=== PATIENT | male | born 1950 | race Caucasian/White ===

== ENCOUNTER 2019-10-18 15:41 | Emergency (ER) | payer MEDICARE, BC ==
[2019-10-18 19:37] LABS: #Lymphocytes 0.6 thou/uL (1.20-3.40); #Monocytes 0.4 thou/uL (0.11-0.59); #Neutrophils 3.5 thou/uL (1.40-6.50); %Basophils 0.5 % (0.0-1.0); %Eosinophils 0.7 % (0.0-10.0); %Lymphocytes 12.5 % (21.0-51.0); %Monocytes 8.3 % (0.0-10.0); %Neutrophils 78.1 % (42.0-75.0); Hemoglobin 13.6 g/dL (14.0-18.0); Mean Corpuscular HGB CONC 32.6 g/dL (32.0-36.0); Mean Corpuscular Hemoglobin 29.8 pg (27.0-31.0); Mean Corpuscular Volume 91.5 fL (78.0-98.0); Mean Platelet Volume 7.2 fL (7.4-10.4); Platelet Count 217 thou/uL (130-400); Red Blood Cell (RBC) Count 4.56 mill/uL (4.70-6.10); White Blood Cell (WBC) Count 4.5 thou/uL (4.8-10.8)
[2019-10-18 20:00] LABS: ALT (SGPT) 18 U/L (8-55); AST (SGOT) 18 U/L (5-34); Albumin 4.1 g/dL (3.4-4.8); Alkaline Phosphatase 65 U/L (40-110); Anion Gap 15 mmol/L (10-20); BUN (Urea Nitrogen) 20 mg/dL (8.4-25.7); Bilirubin, Total 0.8 mg/dL (0.2-1.2); CK (CPK) 128 U/L (30-200); Calc. Creatinine Clearance 0 mL/min (70-130); Calcium 9.2 mg/dL (7.8-10.44); Carbon Dioxide 24 mmol/L (23-31); Chloride 99 mmol/L (98-107); Estimated GFR-MDRD 67; Globulin 2.4 g/dL (2.4-3.5); Glucose 206 mg/dL (80-115); Potassium 4.5 mmol/L (3.5-5.1); Protein, Total 6.5 g/dL (5.8-8.1); Sodium 133 mmol/L (136-145)
[2019-10-18] MEDS ORDERED: Ondansetron ODT 4 MG TAB ONE (20:00)
[2019-10-18] MEDS ORDERED: Meclizine HCl 25 MG TAB ONE (20:00)
--- NOTE | 2019-10-18 20:10 | CT ---
HEAD CT 10/18/19 COMPARISON: None. HISTORY: Dizziness. TECHNIQUE: Axial CT imaging at 5 mm intervals from vertex through skull base without contrast. FINDINGS: The visualized paranasal sinuses and mastoid air cells are well aerated. There is no displaced calvar ial fracture. No intracranial hemorrhage, midline shift, or mass effect. IMPRESSION: No acute findings. POS: [facility]
== END 2019-10-18 21:37 | disposition home or self-care (01) ==
LOC: ERS 15:41
DX: H81.13 Benign paroxysmal vertigo, bilateral (principal); I10 Essential (primary) hypertension; E86.0 Dehydration; E78.5 Hyperlipidemia, unspecified; E11.9 Type 2 diabetes mellitus without complications; Z79.84 Long term (current) use of oral hypoglycemic drugs; Z79.899 Other long term (current) drug therapy
CPT/HCPCS: 70450; 80053; 82550; 84484; 85025; 93005; 94760; 96360; Q0162

== ENCOUNTER 2022-09-26 10:24 | Outpatient (CLI) | payer MEDICARE, BC | END 2022-09-26 10:25 | disposition home or self-care (01) | LOC: BICULT 10:24 | PROVIDERS: ATTEND Internal Medicine Nephrology | DX: N18.30 Chronic kidney disease, stage 3 unspecified (principal) | CPT/HCPCS: 76770 ==